=== PATIENT | female | born 1985 | race Hispanic/Latino ===

== ENCOUNTER 2018-02-17 05:33 | Day surgery (SDC) | payer OTHER ==
[2018-02-16 17:05] VITALS: BP 111/70
[2018-02-16 17:24] LABS: BASOPHILS % (AUTO) 0.6 % (0.0-5.0); EOSINOPHILS % (AUTO) 2.7 % (0.0-8.0); HEMATOCRIT 44.7 % (36-48); LYMPHOCYTES % (AUTO) 25.7 % (21.0-51.0); MEAN CORPUSCULAR HEMOGLOBIN 29.3 pg (27.0-33.0); MEAN CORPUSCULAR HGB CONC 34.2 g/dL (32.0-36.0); MEAN CORPUSCULAR VOLUME 85.7 fL (79-99); MONOCYTES % (AUTO) 8.9 % (3.0-13.0); NEUTROPHILS % (AUTO) 62.1 % (40.0-77.0); NUCLEATED RED BLOOD CELLS 0.1 % (0.0-0.19); PLATELET COUNT (AUTO) 204 K/uL (130-400); RED BLOOD CELL COUNT(AUTO) 5.22 MIL/uL (4.00-5.50); RED CELL DISTRIBUTION WIDTH 13.7 % (11.0-15.5); WHITE BLOOD COUNT (AUTO) 7.3 K/uL (4.8-10.8)
[2018-02-17] VITALS (18 sets, daily range): BP systolic 109–129; BP diastolic 72–91
[~2018-02-17] VITALS: Ht 162.6 cm; Wt 69.5 kg
[2018-02-17] MEDS ORDERED: CEFAZOLIN SODIUM 1 GM VIAL IVP SCH (06:00)
[2018-02-17] MEDS ORDERED: LACTATED RINGERS 1000ML 1,000 ML IV SCH (06:00)
[2018-02-17] MEDS ORDERED: ACETIC ACID 0.25% 1,000 ML IRRIG.SOLN ONE (06:59)
[2018-02-17] MEDS ORDERED: STRONG IODINE SOLUTION 30ML BOTTLE ONE (07:00)
[2018-02-17] MEDS ORDERED: DEXAMETHASONE SOD PHOSPHATE 10MG/ML 1ML VIAL ONE (07:40)
[2018-02-17] MEDS ORDERED: ONDANSETRON HCL 4 MG/2 ML VIAL ONE (07:40)
[2018-02-17] MEDS ORDERED: LIDOCAINE PF 2% 5ML ABBOJECT ONE (07:40)
[2018-02-17] MEDS ORDERED: GLYCOPYRROLATE 0.2 MG/ML 5 ML VIAL ONE (07:40)
[2018-02-17] MEDS ORDERED: MIDAZOLAM HCL 1 MG/ML 2ML VIAL ONE (07:41)
[2018-02-17] MEDS ORDERED: FENTANYL CITRATE PF 50 MCG/1 ML 2ML VIAL ONE (07:41)
[2018-02-17] MEDS ORDERED: PROPOFOL 10 MG/ML 20ML VIAL IV ONE (07:41)
[2018-02-17] MEDS ORDERED: MEPERIDINE-PF 25 MG/ML SYG ONE (08:43)
[2018-02-17] MEDS ORDERED: ONDANSETRON HCL MDV 20ML 2 MG/ML VIAL ONE (09:03)
== END 2018-02-17 10:40 | disposition home or self-care (01) ==
LOC: DAH 05:33
PROVIDERS: ATTEND Obstetrics & Gynecology
DX: N84.1 Polyp of cervix uteri (principal); E11.9 Type 2 diabetes mellitus without complications
CPT/HCPCS: 36415; 57522; 58558; 84703; 85025; 86850; 86900; 86901; 88305; A4351; A4355; A4510; A4600; J1100; J2001; J2175; J2250; J2405; J2704; J3010; J3490; J7030; J7120

== ENCOUNTER 2019-07-08 18:41 | Inpatient (IN) | payer OTHER, MEDICAID | END 2019-07-10 17:10 | disposition home or self-care (01) | LOC: LDH 18:41 → WSH 07-09 17:18 | PROC: 10E0XZZ Delivery of Products of Conception, External Approach (ICD-10-PCS; principal; ~2019-07-08) | DX: Z3A.39 39 weeks gestation of pregnancy (principal); Z37.0 Single live birth; O99.824 Streptococcus B carrier state complicating childbirth; O71.82 Other specified trauma to perineum and vulva ==